=== PATIENT | male | born 1935 | race Caucasian/White ===

== ENCOUNTER 2017-08-03 19:05 | Inpatient (IN) | payer BC, MEDICARE ==
[~2017-08-03] VITALS: Ht 188 cm; Wt 71.0 kg
[~2017-08-03 19:05] MED LIST: LISI-603 PO; TAMS0.4C34 PO; Z GUARD REMEDY PASTE TP
[2017-08-03 20:54] LABS: BASOPHILS % (AUTO) 0.7 % (0.0-2.0); EOSINOPHILS # (AUTO) 0.1 K/uL (0.0-0.7); EOSINOPHILS % (AUTO) 2.1 % (0.0-7.0); HEMATOCRIT 38.7 % (36.7-47.1); HEMOGLOBIN 12.6 g/dL (12.5-16.3); LYMPHOCYTES % (AUTO) 25.9 % (20.5-51.5); MEAN CORPUSCULAR HEMOGLOBIN 27.9 uug (23.8-33.4); MEAN CORPUSCULAR HGB CONC 33 g/dL (32.5-36.3); MEAN CORPUSCULAR VOLUME 85.9 fL (73.0-96.2); MONOCYTES # (AUTO) 0.3 K/uL (2.0-10.0); NEUTROPHILS # (AUTO) 2.3 K/uL (1.8-8.9); NEUTROPHILS % (AUTO) 62.3 % (38.5-71.5); PLATELET COUNT (AUTO) 168 K/uL (152-348); RED BLOOD CELL COUNT(AUTO) 4.51 MIL/uL (4.06-5.63); WHITE BLOOD COUNT (AUTO) 3.7 K/uL (3.6-10.2)
[2017-08-03 21:14] LABS: CARBON DIOXIDE 32 mmol/L (21-32); CHLORIDE 111 mmol/L (98-107); CREATININE 0.9 mg/dL (0.6-1.3); GLUCOSE 131 mg/dL (74-106); POTASSIUM 3.2 mmol/L (3.5-5.1); UREA NITROGEN, BLOOD 16 mg/dL (7-18)
[2017-08-03 21:22] LABS: ALANINE AMINOTRANSFERASE 14 U/L (16-63); ALKALINE PHOSPHATASE 103 U/L (50-136); ASPARTATE AMINOTRANSFERASE 13 U/L (15-37); BILIRUBIN,DIRECT 0.1 mg/dL (0.0-0.2); BILIRUBIN,TOTAL 0.3 mg/dL (0.2-1.0); TOTAL PROTEIN, SERUM 7.4 g/dL (6.4-8.2)
[2017-08-03] MEDS ORDERED: IV D5W-0.45% NS 1000 ML BAG IV ONE (21:30)
[2017-08-03 23:10] LABS: *BILIRUBIN,URIN NEGATIVE (NEGATIVE); *BLOOD, URINE 2+ (NEGATIVE); *CLARITY,URINE CLOUDY (CLEAR); *COLOR,URINE YELLOW (YELLOW); *KETONES,URINE NEGATIVE (NEGATIVE); *PROTEIN,URINE 1+ (NEGATIVE); *UROBILINOGEN,URINE 0.2 E.U./dl (NORMAL); LEUKOCYTE ESTERASE ,URINE 1+ (NEGATIVE); NITRITE, URINE POSITIVE (NEGATIVE); PH,URINE 5.5 (5.0-8.0); UGLUCOSE TRACE (NEGATIVE)
[2017-08-03 23:15] LABS: BACTERIA,URINE MANY /HPF (NONE SEEN); RBC,URINE 20-50 /HPF (0-3); SQUAMOUS EPITHELIAL CELL,UR FEW /HPF (NONE SEEN); WBC,URINE 80-100 /HPF (0-3)
[2017-08-03] MEDS ORDERED: LEVOFLOXACIN 750 MG/D5W 150 ML PIGGYBACK IV ONE (23:30)
[2017-08-03] MEDS ORDERED: CEFTRIAXONE 1 G in IV DEXTROSE 5% 50 ML IV ONE (23:30)
[2017-08-03] MEDS ORDERED: CEFTRIAXONE 1 G VIAL ONE (23:48)
--- NOTE | 2017-08-04 00:19 | NUR ---
Debra nino in ED - 08/04/17 at 0054 by VANE Pt. admitted to [facility], under care of Dr. Angy Bravo List completed
[2017-08-04] MEDS ORDERED: LEVOFLOXACIN 750MG/D5W 150 ML IV ONE (00:27)
[2017-08-04 00:45] VITALS: BP 188/84
[2017-08-04] MEDS ORDERED: POTASSIUM CHLORIDE 20 MEQ TAB.PRT.SR PO ONE (00:45)
[2017-08-04] MEDS ORDERED: ONDANSETRON 4 MG/2 ML VIAL IV PRN (00:45)
[2017-08-04] MEDS ORDERED: ZOLPIDEM 5 MG TABLET PO PRN (00:45)
[2017-08-04] MEDS ORDERED: MORPHINE SULFATE 2 MG/1 ML DISP.SYRIN IV PRN (00:45)
[2017-08-04] MEDS ORDERED: MAGNESIUM HYDROXIDE 30 ML LIQUID UDC PO PRN (00:45)
[2017-08-04] MEDS ORDERED: HYDROCODONE/APAP 5-325MG TABLET PO PRN (00:45)
[2017-08-04] MEDS ORDERED: Z GUARD REMEDY PASTE 57 GM TUBE TOP PRN (00:45)
[2017-08-04] MEDS ORDERED: CEFTRIAXONE 1 G in IV DEXTROSE 5% 50 ML IV SCH (00:45)
[2017-08-04] MEDS ORDERED: ENOXAPARIN SODIUM 40 MG/0.4 ML DISP.SYRIN SQ SCH (00:45)
--- NOTE | 2017-08-04 00:45 | NUR ---
ADMITTED NEW PATIENT TO ROOM 206,ALERT, ORIENTED X 2,CONFUSED,LETHARGY,ABLE TO ANSWER SIMPLE QUESTION, NO DISTRESS NOTED, PATIENT RECEIVED ROCEPHIN IV FROM ER,LEVAQUIN GOING ON FOR UTI,NO SWALLOWING DIFFICULTY NOTED, BP 188/84 ,AFEBRILE DENIES PAIN/DISCOMFORT.,FALL PRECAUTION, BED ALARM ON,CLOSELY MONITOR
--- NOTE | 2017-08-04 00:54 | NUR ---
Pt. admitted to TELE, under care of Dr. Travis Belongs List completed
[2017-08-04] MEDS: LISINOPRIL 20 MG TABLET PO SCH ×3 (01:47→20:15)
[2017-08-04] MEDS ORDERED: ENOXAPARIN SODIUM 40 MG/0.4 ML DISP.SYRIN SQ ONE (01:57)
[2017-08-04] MEDS: IV D5 1/2 NS 1000 ML 1,000 ML IV PRN ×2 (01:57→16:49)
[2017-08-04] MEDS ORDERED: LISINOPRIL 20 MG TABLET ONE (01:59)
[2017-08-04 04:00] VITALS: BP 185/78
[2017-08-04] MEDS ORDERED: MORPHINE SULFATE 4 MG/1 ML DISP.SYRIN IV PRN (07:15)
--- NOTE | 2017-08-04 07:20 | NUR ---
Received client in bed, awake, alert and oriented times one. Bed at lowest position for safety and call light within reach for assistance. No apparent signs and symptom of SOB, pain, distress or discomfort
[2017-08-04] MEDS ORDERED: LISINOPRIL 20 MG TABLET PO SCH (09:00)
[2017-08-04 10:39] VITALS: BP 139/56
[2017-08-04] MEDS ORDERED: INSULIN REGULAR, HUMAN 300 UNIT/3 ML VIAL SQ PRN (11:00)
[2017-08-04] MEDS ORDERED: DEXTROSE 50% 50 ML DISP.SYRIN IV PRN (11:00)
[2017-08-04] MEDS ORDERED: POTASSIUM CHLORIDE 50 ML IV SCH (11:00)
[2017-08-04] MEDS: BLOOD SUGAR DIAGNOSTIC 1 EACH STRIP VI SCH ×3 (11:49→20:19)
--- NOTE | 2017-08-04 14:30 | NUR ---
EKG in process
[2017-08-04 15:13] VITALS: BP 120/65
--- NOTE | 2017-08-04 18:34 | NUR ---
Client is in bed awake, alert and oriented times one. Client has been using the call light throughout the entire day. Needs have been attended too. No apparent signs and symptom of pain, distress or discomfort. Compliant with all nursing care. Bed at lowest position with the HOB at a high fowlers and call light within reach for assistance
--- NOTE | 2017-08-04 18:49 | NUR ---
DVT pumps in place and running
--- NOTE | 2017-08-04 19:30 | NUR ---
PT RECEIVED IN BED, AWAKE. A/OX1. SUDANESE SPEAKING, FORK OPERATOR NEEDED. V/S STABLE. IN NO ACUTE DISTRESS. NO C/O PAIN AT THIS TIME. IVF INFUSING. ON RA, TOLERATING WELL. AFEBRILE AT THIS TIME. SAFETY MEASURES IMPLEMENTED. BED ALARM SET. CALL LIGHT WITHIN REACH. Addendum: 08/04/17 at 2222 by FER DUTTON RN PT SEEN WITH LOW GRADE FEVER 99.4F. COOLING MEASURES INITIATED. TO ADMIN TYLENOL ORDERED.
[2017-08-04 20:08] VITALS: BP 113/69
[2017-08-04] MEDS: TAMSULOSIN HCL 0.4 MG CAP.SR.24H PO SCH (20:16)
[2017-08-04] MEDS: ACETAMINOPHEN 325 MG TABLET PO PRN (22:36)
[2017-08-04] MEDS: CEFTRIAXONE 1 G in IV DEXTROSE 5% 50 ML IV SCH (22:38)
[2017-08-05 04:00] VITALS: BP 146/69
--- NOTE | 2017-08-05 06:30 | NUR ---
END OF SHIFT NOTES. PT SLEPT WELL THROUGHOUT SHIFT. IN STABLE CONDITION. IV ABX INFUSED. IVF INFUSING. BG CONTROLLED. AFEBRILE. HOB ELEVATED. ALL NEEDS ATTENDED. SAFETY MAINTAINED. CALL LIGHT WITHIN REACH.
[2017-08-05] MEDS: BLOOD SUGAR DIAGNOSTIC 1 EACH STRIP VI SCH ×4 (06:44→21:02)
[2017-08-05 06:49] LABS: BASOPHILS % (AUTO) 0.9 % (0.0-2.0); EOSINOPHILS # (AUTO) 0.2 K/uL (0.0-0.7); EOSINOPHILS % (AUTO) 4.5 % (0.0-7.0); HEMATOCRIT 32.7 % (36.7-47.1); HEMOGLOBIN 10.7 g/dL (12.5-16.3); LYMPHOCYTES # (AUTO) 1.3 K/uL (20.0-40.0); LYMPHOCYTES % (AUTO) 33.1 % (20.5-51.5); MEAN CORPUSCULAR HEMOGLOBIN 28.3 uug (23.8-33.4); MEAN CORPUSCULAR HGB CONC 33 g/dL (32.5-36.3); MEAN CORPUSCULAR VOLUME 86.6 fL (73.0-96.2); MONOCYTES # (AUTO) 0.4 K/uL (2.0-10.0); MONOCYTES % (AUTO) 10.5 % (0.0-11.0); NEUTROPHILS # (AUTO) 2.1 K/uL (1.8-8.9); PLATELET COUNT (AUTO) 140 K/uL (152-348); RED BLOOD CELL COUNT(AUTO) 3.78 MIL/uL (4.06-5.63)
--- NOTE | 2017-08-05 07:10 | NUR ---
Received client in bed with the HOB at a semi fowlers position with no apparent signs and symptoms of SOB, pain, distress or discomfort. Bed at lowest position for safety and call light within reach for assistance IV for hydration running, no apparent signs and symptoms of infection or infiltration at the IV site.
[2017-08-05 07:46] LABS: CARBON DIOXIDE 30 mmol/L (21-32); CHLORIDE 108 mmol/L (98-107); CREATININE 0.8 mg/dL (0.6-1.3); GLUCOSE 96 mg/dL (74-106); MAGNESIUM 1.5 mg/dL (1.8-2.4); PHOSPHOROUS 3.3 mg/dL (2.5-4.9); POTASSIUM 3.9 mmol/L (3.5-5.1); UREA NITROGEN, BLOOD 19 mg/dL (7-18)
[2017-08-05] MEDS: FAMOTIDINE 20 MG TABLET PO SCH (08:25)
[2017-08-05] MEDS: LISINOPRIL 20 MG TABLET PO SCH ×2 (08:26→20:42)
[2017-08-05] MEDS: ENOXAPARIN SODIUM 40 MG/0.4 ML DISP.SYRIN SQ SCH (08:28)
[2017-08-05] MEDS: IV D5 1/2 NS 1000 ML 1,000 ML IV PRN (09:25)
--- NOTE | 2017-08-05 10:00 | NUR ---
Wound consult done with wound therapeutic consultant and infection control
[2017-08-05 11:01] VITALS: BP 132/63
[2017-08-05 15:16] VITALS: BP 138/68
--- NOTE | 2017-08-05 16:14 | NUR ---
Accu ck at 143, cleaned meter and will follow sliding scale protocol and sliding scale as ordered
[2017-08-05] MEDS: MAGNESIUM SULFATE/D5W 100 ML IV SCH ×2 (18:08→21:13)
--- NOTE | 2017-08-05 18:34 | NUR ---
Client compliant with all nursing care. medication tolerated well. Bed at lowest position for safety and call light within reach for assistance. Client is noted to a good appetite, eats 90% or more for B-L-D. No apparent SOB, pain, discomfort or distress noted.
[2017-08-05 20:00] VITALS: BP 109/62
[2017-08-05] MEDS: TAMSULOSIN HCL 0.4 MG CAP.SR.24H PO SCH (20:41)
[2017-08-05] MEDS: Z GUARD REMEDY PASTE 57 GM TUBE TOP SCH (20:47)
[2017-08-05] MEDS ORDERED: MAGNESIUM SULFATE/D5W 100 ML IV SCH (21:00)
--- NOTE | 2017-08-05 22:02 | NUR ---
2 bags of Magnesium 1gm IVPB completed. Patient tolerated well.
[2017-08-05] MEDS: CEFTRIAXONE 1 G in IV DEXTROSE 5% 50 ML IV SCH (22:58)
[2017-08-06] MEDS: IV D5 1/2 NS 1000 ML 1,000 ML IV PRN (00:28)
--- NOTE | 2017-08-06 00:58 | NUR ---
PT IN ROOM ALERT AWAKE IN NO ACUTE DISTRESS. PT DENIES ANY PAIN OR DISCOMFORT AT THIS TIME. CONTINUE TO MONITOR.
--- NOTE | 2017-08-06 05:00 | NUR ---
PT IN ROOM ALERT AWAKE IN NO ACUTE DISTRESS. PT ABLE TO FOLLOW SIMPLE COMMANDS BUT REFUSES SLEEP AT THIS TIME. DENIES ANY HEADACHES, DIZZINESS, PAIN, OR DISCOMFORT. CONTINUE TO MONITOR. CONTINUING IV FLUIDS. 3 SIDE RAILS RAISED.
[2017-08-06 06:50] VITALS: BP 155/76
[2017-08-06 07:39] LABS: CARBON DIOXIDE 30 mmol/L (21-32); CHLORIDE 108 mmol/L (98-107); CREATININE 0.6 mg/dL (0.6-1.3); GLUCOSE 104 mg/dL (74-106); UREA NITROGEN, BLOOD 14 mg/dL (7-18)
[2017-08-06 07:59] VITALS: BP 135/69
[2017-08-06] MEDS: LISINOPRIL 20 MG TABLET PO SCH (08:00)
[2017-08-06] MEDS: FAMOTIDINE 20 MG TABLET PO SCH (08:00)
[2017-08-06] MEDS: BLOOD SUGAR DIAGNOSTIC 1 EACH STRIP VI SCH ×2 (08:01→11:57)
[2017-08-06] MEDS: Z GUARD REMEDY PASTE 57 GM TUBE TOP SCH (08:02)
[2017-08-06] MEDS: ENOXAPARIN SODIUM 40 MG/0.4 ML DISP.SYRIN SQ SCH (08:06)
[2017-08-06] MEDS: ACETAMINOPHEN 325 MG TABLET PO PRN (09:24)
--- NOTE | 2017-08-06 11:29 | NUR ---
Pt evaluated by physical therapy. Pt able to walk in the hallway with walker, 2 person assist. Pt is in no distress.
[2017-08-06] MEDS ORDERED: LEVO500T2 PO (11:34)
[2017-08-06 11:37] VITALS: BP 158/82
[2017-08-06 12:00] VITALS: BP 132/70
--- NOTE | 2017-08-06 12:25 | NUR ---
Patient to be discharged to assisted living facility as ordered. Discharge in process. IV access off, belonging list done. Addendum: 08/06/17 at 1227 by REESE GRIMALDO RN Add: photo of right arm taken and placed in chart
[2017-08-06 15:19] VITALS: BP 133/68
--- NOTE | 2017-08-06 15:33 | NUR ---
Rachell Chavez, [facility] [place] [facility] to transport patient to [facility] via private car. Discharge instructions provided, signed by Rachell, prescription attached. Copy of discharge papers provided to Rachell, copy placed in patient's chart. Patient is alert, in no distress, diaper changed before leaving the hospital. Patient's buttocks/sacral area intact, witnessed/inspected with Rachell. ID band removed. Patient left unit via wheelchair, accompanied by nurse clerical assistant.
== END 2017-08-06 15:30 | DRG 690 ==
LOC: ER 19:06 → TELE 08-04 00:13 → MED 08-04 16:15
PROVIDERS: ADMIT Internal Medicine; ATTEND Registered Nurse
DX: N39.0 Urinary tract infection, site not specified (principal); E87.0 Hyperosmolality and hypernatremia; I95.89 Other hypotension; E11.65 Type 2 diabetes mellitus with hyperglycemia; E83.42 Hypomagnesemia; I11.0 Hypertensive heart disease with heart failure; I50.9 Heart failure, unspecified; E86.0 Dehydration; F03.90 Unspecified dementia, unspecified severity, without behavioral disturbance, psychotic disturbance, mood disturbance, and anxiety; I95.1 Orthostatic hypotension; E87.6 Hypokalemia; Z79.4 Long term (current) use of insulin; I44.0 Atrioventricular block, first degree; Z79.899 Other long term (current) drug therapy; F20.9 Schizophrenia, unspecified
CPT/HCPCS: 36415; 70030-TC; 71045; 83605; 83735; 84100; 84443; 85025; 85730; 87040; 87077; 87086; 93005; 93307; A4663; C1758; J0696; J1650; J1815; J1956; J3475; J3490; J7030; J7060